=== PATIENT | male | born 1990 | race Caucasian/White ===

== ENCOUNTER → 2022-03-10 | Outpatient (CLI) | payer MEDICAID | END | disposition EMS.NT | LOC: EMS 10:37 | DX: Z03.89 Encounter for observation for other suspected diseases and conditions ruled out (principal) ==

== ENCOUNTER 2022-12-24 06:53 | Emergency (ER) | payer OTHER ==
[2022-12-24 07:08] VITALS: BP 135/82
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
== END 2022-12-24 09:10 | disposition home or self-care (01) ==
LOC: ED 06:53
DX: S02.609A Fracture of mandible, unspecified, initial encounter for closed fracture (principal); Y04.2XXA Assault by strike against or bumped into by another person, initial encounter; Z87.891 Personal history of nicotine dependence
CPT/HCPCS: 99283; 99284

== ENCOUNTER 2023-02-23 17:05 | Emergency (ER) | payer OTHER ==
[2023-02-23 17:17] VITALS: BP 134/90; O2SAT 98
[2023-02-23] MEDS ORDERED: SULFAMETH/TRIMETH DS 800/160 MG TABLET PO STA (18:25)
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
== END 2023-02-23 18:39 | disposition home or self-care (01) ==
LOC: ED 17:05
DX: L03.115 Cellulitis of right lower limb (principal); Z79.899 Other long term (current) drug therapy; Z87.891 Personal history of nicotine dependence
CPT/HCPCS: 99282; 99283

== ENCOUNTER 2023-03-22 16:16 | Emergency (ER) | payer OTHER ==
[2023-03-22 16:28] VITALS: O2SAT 100
[2023-03-22] MEDS ORDERED: TETANUS/DIPHTHERIA/PERTUSSIS 0.5 ML SYRINGE IM ONE (17:35)
[2023-03-22] MEDS ORDERED: DOXYCYCLINE 100 MG TABLET PO STA (17:36)
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
[2023-03-22 17:53] VITALS: BP 148/95
== END 2023-03-22 17:52 | disposition home or self-care (01) ==
LOC: ED 16:16
DX: S61.431A Puncture wound without foreign body of right hand, initial encounter (principal); W26.0XXA Contact with knife, initial encounter; Y93.89 Activity, other specified; L03.113 Cellulitis of right upper limb
CPT/HCPCS: 90471; 90715; 99283; A9270

== ENCOUNTER 2023-04-05 12:46 | Emergency (ER) | payer OTHER ==
[2023-04-05 13:05] VITALS: BP 129/91; O2SAT 100
--- NOTE | 2023-04-05 15:40 | ED Physician Documentation ---
PD HPI SKIN - Stated complaint Stated Complaint: FACIAL REDNESS/PX - Chief complaint Chief Complaint: Wound - Additional information Additional information: This is a 32-year-old male who presents with recurrent lesions on his face and arms. He states he has been seen in the past for cellulitis and completed courses of Keflex and after no improvement he was treated then with doxycycline. He has some improvement but then his lesions will recur. He feels as though there is some pus in the lesions around his forehead and he can "squeeze it from side to side. Sometimes the drainage is purulent, sometimes clear. He also has lesions on his arms. He has not had any fever or chills, no chest pain or difficulty breathing, no nausea vomiting or diarrhea, no urinary symptoms. No history of MRSA to his knowledge. He states that these lesions are causing him difficulty at his job at [employer] because his face always looks like he has an infection. Review of Systems Constitutional: reports: Reviewed and negative Cardiac: reports: Reviewed and negative Respiratory: reports: Reviewed and negative GI: reports: Reviewed and negative : reports: Reviewed and negative Skin: reports: Rash, Lesions, Abrasion (s) Musculoskeletal: reports: Reviewed and negative Neurologic: reports: Reviewed and negative PD PAST MEDICAL HISTORY - Past Medical History Past Medical History: Yes Cardiovascular: None Respiratory: Asthma Neuro: None Endocrine/Autoimmune: None GI: None : None HEENT: None Psych: Anxiety, Bipolar disorder, Obsessive compulsive disorder Musculoskeletal: None Derm: None - Past Surgical History Past Surgical History: Yes Ortho: Arthroscopic surgery - Present Medications Home Medications: Ambulatory Orders Medication Instructions Recorded Confirmed Dextroamphetamine/Amphetamine 50 mg PO DAILY 12/24/22 04/05/23 [Mydayis ER 50 mg Capsule] Venlafaxine ER [Effexor ER] 275 mg PO DAILY 12/24/22 04/05/23 clonazePAM [Klonopin] 2 mg PO BID PRN 12/24/22 04/05/23 lamoTRIgine [Lamictal] 200 mg PO DAILY 12/24/22 04/05/23 Mupirocin 2% Oint [Bactroban 2% 1 applic TOP BID 10 Days #50 gm 04/05/23 Oint] Sulfamethox/Trimeth 800/160 1 each PO BID #28 tablet 04/05/23 [Bactrim Ds 800/160] - Allergies Allergies/Adverse Reactions: Allergies Allergy/AdvReac Type Severity Reaction Status Date / Time clomipramine Allergy Unknown Verified 04/05/23 12:56 - Social History Does the pt smoke?: No Smoking Status: Never smoker Does the pt drink ETOH?: Yes Does the pt have substance abuse?: Yes Substance Use and Type: Marijuana - Immunizations Immunizations are current?: No Immunizations: Other immun not current PD ED PE NORMAL - Vitals Vital signs reviewed: Yes - General General: Alert and oriented X 3, No acute distress, Well developed/nourished - HEENT HEENT: Atraumatic, Moist mucous membranes - Cardiac Cardiac: RRR, No murmur - Respiratory Respiratory: No respiratory distress, Clear bilaterally - Derm Derm: Other (multiple open lesions and abrasions on forehead and nose. few scabs on arms. no pustules or vesicles no tender erythema. ) Results - Vitals Vitals: Vital Signs - 24 hr 04/05/23 12:56 Temperature 36.8 C Heart Rate 115 H Respiratory 24 Rate Blood Pressure 129/91 H O2 Saturation 100 Oxygen O2 Source Room air PD Medical Decision Making - ED course Complexity details: considered differential, d/w patient ED course: This is a 32-year-old male who presents with nonhealing lesions on his face and arms. He has a number of flat ulcers and abrasions on the forehead nose and a few scabs on his arms. None of them look particularly infected though he does have tenderness on the forehead lesions. No pustule drainage, no spreading erythema, no streaking lymphangitis. The patient has no systemic symptoms and is nontoxic-appearing. I discussed with patient that I suspect this is a staph infection and recommended that we try to decolonize the patient, he can do Bactrim for 14 days, mupirocin in the nose and on the lesions, and if he is able to, headache for [place] up to a half a cup of bleach to a bath and sit in it for 10 to 15 minutes 3 times a week. If he has no improvement with this course of treatment, recommended following up with dermatology. Discussed return precautions if he developed any new or worsening symptoms such as fever, spreading erythema or new concerns. Departure - Departure Disposition: 01 Home, Self Care Clinical Impression: Cellulitis and abscess of face Condition: Good Instructions: ED Cellulitis Facial Prescriptions: Sulfamethox/Trimeth 800/160 [Bactrim Ds 800/160] 1 each PO BID #28 tablet Mupirocin 2% Oint [Bactroban 2% Oint] 1 applic TOP BID 10 Days #50 gm Comments: Your non healing skin ulcers may be due to staph infection. We have cultured the area. Please do baths w/ 1/2 cup of bleach 3x a week and use the topical mupirocin ointment in the nose twice a day. I have also prescribed a longer course of antibiotics. If you still have issues after this, you will need to see a cyanide case hardener. Please also ensure sufficient rest, healthy diet, and stress reduction. Some foods can also cause skin issues so please keep an eye out if anything seems to trigger your symptoms. Forms: PCP List Discharge Date/Time: 04/05/23 15:57
== END 2023-04-05 15:57 | disposition home or self-care (01) ==
LOC: ED 12:46
DX: J34.0 Abscess, furuncle and carbuncle of nose (principal); L03.211 Cellulitis of face; L98.499 Non-pressure chronic ulcer of skin of other sites with unspecified severity
CPT/HCPCS: 99283

== ENCOUNTER 2023-05-03 13:51 | Emergency (ER) | payer OTHER ==
--- NOTE | 2023-05-03 14:50 | ED Physician Documentation ---
PD HPI UPPER EXT INJURY - Stated complaint Stated Complaint: LT FINGER INJ - Chief complaint Chief Complaint: Trauma Ext - History obtained from History obtained from: Patient - History of Present Illness Location: Left, Finger Type of injury: Other Where injury occurred: Work - Additonal information Additional information: 32-year-old male presents after a left ring finger injury. He was working as a express clerk at [employer] and somehow his left ring finger got caught into the conveyor belt for the food. He was able to pull it out but sustained an abrasion and felt like it got pulled or possibly fractured during the injury. He notes small amount of swelling, initially bled but bleeding has subsided, and he has discomfort with flexion and extension. He is up-to-date on his tetanus. This was a work-related injury. PD PAST MEDICAL HISTORY - Past Medical History Past Medical History: Yes Cardiovascular: None Respiratory: Asthma Neuro: None Endocrine/Autoimmune: None GI: None : None HEENT: None Psych: Anxiety, Bipolar disorder, Obsessive compulsive disorder Musculoskeletal: None Derm: None - Past Surgical History Past Surgical History: Yes Ortho: Arthroscopic surgery - Present Medications Home Medications: Ambulatory Orders Medication Instructions Recorded Confirmed Dextroamphetamine/Amphetamine 50 mg PO DAILY 12/24/22 04/05/23 [Mydayis ER 50 mg Capsule] Venlafaxine ER [Effexor ER] 275 mg PO DAILY 12/24/22 04/05/23 clonazePAM [Klonopin] 2 mg PO BID PRN 12/24/22 04/05/23 lamoTRIgine [Lamictal] 200 mg PO DAILY 12/24/22 04/05/23 Mupirocin 2% Oint [Bactroban 2% 1 applic TOP BID 10 Days #50 gm 04/05/23 Oint] Sulfamethox/Trimeth 800/160 1 each PO BID #28 tablet 04/05/23 [Bactrim Ds 800/160] cephALEXin [Keflex] 500 mg PO Q6H #20 cap 05/03/23 - Allergies Allergies/Adverse Reactions: Allergies Allergy/AdvReac Type Severity Reaction Status Date / Time clomipramine Allergy Unknown Verified 05/03/23 14:28 - Social History Does the pt smoke?: No Smoking Status: Never smoker Does the pt drink ETOH?: Yes Does the pt have substance abuse?: Yes - Immunizations Immunizations are current?: No Immunizations: Other immun not current PD ED PE NORMAL - Vitals Vital signs reviewed: Yes - General General: Alert and oriented X 3, No acute distress, Well developed/nourished - Derm Derm: Normal color, Warm and dry, Other (There is abrasion on the dorsal surface of the left ring finger over the middle phalanx.No nail injury) - Extremities Extremities: No deformity ( No nail injury.), Other (Trace swelling of the left ring finger, mild tenderness of the DIP joint, able to flex and extend without difficulty. Brisk cap refill. No other hand injuries.) Results - Vitals Vitals: Vital Signs - 24 hr 05/03/23 14:28 Temperature 36.5 C Heart Rate 100 Respiratory 16 Rate Blood Pressure 148/75 H O2 Saturation 99 Oxygen O2 Source Room air - Rads (name of study) No standard instances Relevant Findings:: Final report received, See rad report PD Medical Decision Making - ED course Complexity details: considered differential, d/w patient ED course: 32-year-old male presented with a left ring finger injury as described in HPI. He has a small abrasion on the dorsal surface of the ring finger and tenderness at the DIP. He is able to flex and extend it. I have low suspicion for tendon injury. We did obtain x-ray which shows no acute fracture. I thought perhaps there was a minor fracture at the distal aspect of the middle phalanx but the radiology read was negative. Therefore have still placed the patient in a splint to help with pain, he was advised he can take Tylenol or ibuprofen, and keep the wound clean and dry. The patient is quite concerned about infection as the cover but was very dirty and he has a history of MRSA and cellulitis therefore we will give him Keflex x5 days. It is advised of return precautions if any signs of Infection despite antibiotics. Patient states understanding. Is on ibuprofen was completed and patient was discharged home. Departure - Departure Disposition: 01 Home, Self Care Clinical Impression: Finger injury Qualifiers: Encounter type: initial encounter Laterality: left Qualified Code(s): S69.92XA - Unspecified injury of left wrist, hand and finger(s), initial encounter Condition: Good Instructions: ED Abrasion, ED Sprain Finger Prescriptions: cephALEXin [Keflex] 500 mg PO Q6H #20 cap Comments: Keep wound clean w/ gentle soap and water, otherwise keep dry and do not soak. Take antibiotics for 5 days. Keep splint in place and follow up as needed with primary doctor. [facility] Forms: PCP List
--- NOTE | 2023-05-03 14:58 | XRAY Report ---
PROCEDURE: Finger(s) LT INDICATIONS: injury TECHNIQUE: AP hand, 2 views of the left ring finger(s) acquired. COMPARISON: None. FINDINGS: Bones: No fractures or dislocations. No suspicious bony lesions. Soft tissues: No suspicious soft tissue calcifications or masses. IMPRESSION: No acute bony abnormality. Reviewed by: Aguila Pate MD on 05/03/2023 1:57 PM [place] Approved by: Aguila Pate MD on 05/03/2023 1:57 PM [facility] Station ID: [id number]
[2023-05-03 15:43] VITALS: BP 155/85; O2SAT 94
== END 2023-05-03 15:36 | disposition home or self-care (01) ==
LOC: ED 13:51
DX: S69.92XA Unspecified injury of left wrist, hand and finger(s), initial encounter (principal); W23.0XXA Caught, crushed, jammed, or pinched between moving objects, initial encounter; Y92.512 Supermarket, store or market as the place of occurrence of the external cause; Y99.0 Civilian activity done for income or pay; Z79.899 Other long term (current) drug therapy
CPT/HCPCS: 1040M; 99283

== ENCOUNTER 2023-05-09 14:15 | Outpatient (CLI) | payer OTHER ==
--- NOTE | 2023-05-09 16:36 | XRAY Report ---
PROCEDURE: Hand 3 View LT INDICATIONS: LEFTT FINGER INJURY TECHNIQUE: 3 views of the hand(s) acquired. COMPARISON: X-ray 05/03/2023 FINDINGS: Bones: No fractures or dislocations. No suspicious bony lesions. Soft tissues: No suspicious soft tissue calcifications or masses. IMPRESSION: No acute bony abnormality. Reviewed by: Willy Ferro MD on 05/09/2023 4:34 PM PST Approved by: Willy Ferro MD on 05/09/2023 4:34 PM PST Station ID: [id number]
== END 2023-05-09 14:16 | disposition home or self-care (01) ==
LOC: DI 14:15
PROVIDERS: ATTEND Nurse Practitioner Family
DX: S69.92XD Unspecified injury of left wrist, hand and finger(s), subsequent encounter (principal)

== ENCOUNTER 2023-08-11 12:26 | Emergency (ER) | payer OTHER, MEDICAID ==
[2023-08-11 12:45] VITALS: BP 140/90; O2SAT 100
--- NOTE | 2023-08-11 13:21 | XRAY Report ---
PROCEDURE: Wrist 3+V RT INDICATIONS: pain TECHNIQUE: 8 views of the wrist were acquired. COMPARISON: None. FINDINGS: Bones: No fractures or dislocations. No suspicious bony lesions. Soft tissues: No suspicious soft tissue calcifications or masses. IMPRESSION: No acute bony abnormality. If there is anatomic snuff box tenderness, consider wrist immobilization a nd repeat radiographs in 10-14 days or cross-sectional imaging now. If pain persists with conservativ e management, consider repeat radiographs in 10-14 days or cross-sectional imaging. Reviewed by: Vishal Roldan MD on 08/11/2023 1:19 PM PST Approved by: Vishal Roldan MD on 08/11/2023 1:19 PM PST Station ID: [id number]
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
--- NOTE | 2023-08-11 15:13 | XRAY Report ---
PROCEDURE: Hand 3+V RT INDICATIONS: hand inj TECHNIQUE: 3 views of the hand(s) acquired. COMPARISON: None. FINDINGS: Bones: Curvilinear calcification along the radial side of the fourth proximal phalanx base. Soft tissues: No suspicious soft tissue calcifications or masses. IMPRESSION: Curvilinear calcification along the radial side of the fourth proximal phalanx base, which could repr esent chip fracture or dystrophic calcification. Reviewed by: Margarito Pham MD on 08/11/2023 3:11 PM PST Approved by: Margarito Pham MD on 08/11/2023 3:11 PM PST Station ID: [id number]
== END 2023-08-11 15:39 | disposition home or self-care (01) ==
LOC: ED 12:26
DX: S62.644A Nondisplaced fracture of proximal phalanx of right ring finger, initial encounter for closed fracture (principal); V29.39XA Other motorcycle (driver) (passenger) injured in unspecified nontraffic accident, initial encounter; Y92.524 Gas station as the place of occurrence of the external cause; Z79.899 Other long term (current) drug therapy
CPT/HCPCS: 99283